=== PATIENT | female | born 1935 | race African-American/Black ===

== ENCOUNTER 2016-08-25 15:49 | Emergency (ER) | payer MEDICAID, MEDICARE, OTHER ==
[~2016-08-25] VITALS: Ht 157.5 cm; Wt 49.0 kg
[2016-08-25] MEDS ORDERED: ASPIR 8181 MG ORAL (15:56)
[2016-08-25] MEDS ORDERED: MECLIZINE HCL12.5 MG ORAL (15:56)
[2016-08-25] MEDS ORDERED: METFORMIN HCL500 M1 ORAL (15:56)
[2016-08-25 16:00] VITALS: BP 155/78
[2016-08-25] MEDS ORDERED: Meclizine 25mg tab ORAL PRN (16:30)
[2016-08-25 16:33] LABS: BASOPHILS % (AUTO) 1.4 % (0.0-2.0); EOSINOPHILS % (AUTO) 1.9 % (0.0-3.0); LYMPHOCYTES % (AUTO) 30.7 % (20.0-45.0); MEAN CORPUSCULAR HEMOGLOBIN 30.1 PG (27.0-31.0); MEAN CORPUSCULAR HGB CONC 35.1 G/DL (32.0-36.0); MEAN CORPUSCULAR VOLUME 86 FL (80-99); MEAN PLATELET VOLUME 7.1 FL (6.5-10.1); MONOCYTES % (AUTO) 8.6 % (1.0-10.0); NEUTROPHILS % (AUTO) 57.5 % (45.0-75.0); PLATELET COUNT 243 K/UL (150-450); RED BLOOD COUNT 3.91 M/UL (4.20-5.40); RED CELL DISTRIBUTION WIDTH 12.8 % (11.6-14.8); WHITE BLOOD COUNT 5.7 K/UL (4.8-10.8)
[2016-08-25 16:50] LABS: ANION GAP 12 (5-15); CALCIUM 9.3 mg/dL (8.6-10.2); CARBON DIOXIDE 24 mEQ/L (20-30); CHLORIDE 102 mEQ/L (98-107); HEMOLYSIS 2; SODIUM 138 mEQ/L (135-145)
[2016-08-25 17:50] LABS: TROPONIN I < 0.30 ng/mL (<=0.30)
[2016-08-25 17:53] LABS: ALANINE AMINOTRANSFERASE 6 U/L (3-33); ALBUMIN/GLOBULIN RATIO 1.2 (1.0-2.7); ANION GAP 11 (5-15); ASPARTATE AMINO TRANSFERASE 12 U/L (5-40); CALCIUM 8.6 mg/dL (8.6-10.2); CARBON DIOXIDE 23 mEQ/L (20-30); CHLORIDE 104 mEQ/L (98-107); CREATININE 0.9 mg/dL (0.5-0.9); HEMOLYSIS 13; POTASSIUM 3.7 mEQ/L (3.4-4.9); SODIUM 138 mEQ/L (135-145); TOTAL PROTEIN 6.6 g/dL (6.6-8.7)
[2016-08-25 18:03] LABS: CKMB < 1.5 ng/mL (< 3.8)
--- NOTE | 2016-08-25 18:52 | Emergency Room Report ---
History of Present Illness General Chief Complaint: Dizziness Source: EMS Present Illness HPI 80 YO Female presents to the ED c/o vertigo, BIBA. upon arrival of daughter, daughter states ems was called b/c pt was c/o CP. Pt. has a hx of vertigo and takes meclizine. pt. also has hx of HTN. Pt. denies weakness, ADAMS , trauma or fall. Pt. and daughter report that onset of symptoms was after eating food. daughter also states two days ago pt. c/o similar symptoms again while eating food. denies nausea, vomiting, fevers, or chills. denies frequency, dysuria, abdominal pain, lower extremity swelling/edema or recent cough/uri. Denies Palpitations, LOC, AMS, dizziness, Changes in Vision, Sensation, paresthesias, or a sudden severe headache. Allergies: Coded Allergies: No Known Allergies (Verified , 01/18/11) Patient History Past Medical History: see triage record Past Surgical History: none Pertinent Family History: none Now: No Immunizations: UTD Reviewed Nursing Documentation: PMH: Agreed, PSxH: Agreed Nursing Documentation-PMH Past Medical History: No History, Except For Hx Cardiac Problems: No - VERTIGO Hx Hypertension: Yes Hx Diabetes: Yes Review of Systems All Other Systems: negative except mentioned in HPI Physical Exam Vital Signs Date Time Temp Pulse Resp B/P Pulse Ox O2 Delivery O2 Flow Rate FiO2 08/25/16 15:53 98.4 102 16 169/97 100 Room Air Sp02 EP Interpretation: reviewed, abnormal - tachycardic 102 bpm General Appearance: no apparent distress, alert, GCS 15, non-toxic Head: normocephalic, atraumatic Eyes: bilateral eye PERRL, bilateral eye normal inspection ENT: hearing grossly normal, normal pharynx, no angioedema, normal voice Neck: full range of motion, supple/symm/no masses Respiratory: chest non-tender, lungs clear, normal breath sounds, speaking full sentences Cardiovascular #1: regular rate, rhythm, no edema, normal capillary refill Gastrointestinal: normal bowel sounds, non tender, soft, no guarding, no rebound Rectal: deferred Genitourinary: normal inspection, no CVA tenderness Musculoskeletal: back normal, gait/station normal, normal range of motion, non- tender Neurologic: alert, oriented x3, responsive, motor strength/tone normal, sensory intact, cerebellar normal, normal gait, speech normal, no pronator, other - negative goldman's Psychiatric: judgement/insight normal, memory normal, mood/affect normal Skin: normal color, no rash, warm/dry, well hydrated Medical Decision Making PA Attestation Dr. nathan is my supervising Physician whom patient management has been discussed with. Diagnostic Impression: Primary Impression: Nonspecific chest pain Additional Impression: History of vertigo ER Course 80 YO Female presents to the ED c/o vertigo, BIBA. upon arrival of daughter, daughter states ems was called b/c pt was c/o CP. Pt. has a hx of vertigo and takes meclizine. pt. also has hx of HTN. Pt. denies weakness, ADAMS , trauma or fall. Pt. and daughter report that onset of symptoms was after eating food. daughter also states two days ago pt. c/o similar symptoms again while eating food. denies nausea, vomiting, fevers, or chills. denies frequency, dysuria, abdominal pain, or recent cough/uri. Denies Palpitations, LOC, AMS, dizziness, Changes in Vision, Sensation, paresthesias, or a sudden severe headache. Ddx considered but are not limited to [place], pneumonia, contusion, costochondritis , PE, ACS, Shoulder strain, Chest wall contusion. aortic dissection. Vital signs: are WNL, pt. is afebrile H&PE are most consistent with non-specific cp, possible gastritis, will do cardiac work up. Pt. does not have focal neurological deficit. NAD, non-toxic in appearance. ORDERS: - EKG:- 75 BPM NSR - no acute ST changes reviewed by Dr. Dillon, this interpretation was scribed by HAWA Brown -CBC: mild anemia otherwise unremarkable -CMP electrolytes ok, glucose 139, cr. 1 -CK-MB: WNL -Troponins: WNL CXR: no acute disease, no infiltrates, no atelectasis, cardiomegaly noted per preliminary read in ED by Dr. Dillon, scribed by HAWA Brown ED INTERVENTIONS: - 1000cc NS - Meclizine PO -Zantac PO DISCHARGE: At this time pt. is stable for d/c to home. Will provide printed patient care instructions, and any necessary prescriptions. Care plan and follow up instructions have been discussed with the patient prior to discharge. Labs Test 08/25/16 16:15 08/25/16 17:15 08/25/16 19:30 White Blood Count 5.7 K/UL (4.8-10.8) Red Blood Count 3.91 M/UL (4.20-5.40) Hemoglobin 11.8 G/DL (12.0-16.0) Hematocrit 33.5 % (37.0-47.0) Mean Corpuscular Volume 86 FL (80-99) Mean Corpuscular Hemoglobin 30.1 PG (27.0-31.0) Mean Corpuscular Hemoglobin Concent 35.1 G/DL (32.0-36.0) Red Cell Distribution Width 12.8 % (11.6-14.8) Platelet Count 243 K/UL (150-450) Mean Platelet Volume 7.1 FL (6.5-10.1) Neutrophils (%) (Auto) 57.5 % (45.0-75.0) Lymphocytes (%) (Auto) 30.7 % (20.0-45.0) Monocytes (%) (Auto) 8.6 % (1.0-10.0) Eosinophils (%) (Auto) 1.9 % (0.0-3.0) Basophils (%) (Auto) 1.4 % (0.0-2.0) Sodium Level 138 mEQ/L (135-145) Potassium Level 3.7 mEQ/L (3.4-4.9) Chloride Level 104 mEQ/L (98-107) Carbon Dioxide Level 23 mEQ/L (20-30) Anion Gap 11 (5-15) Blood Urea Nitrogen 10 mg/dL (7-23) Creatinine 0.9 mg/dL (0.5-0.9) Estimat Glomerular Filtration Rate mL/min (>60) Glucose Level 103 mg/dL (74-106) Calcium Level 8.6 mg/dL (8.6-10.2) Total Bilirubin 0.9 mg/dL (0.0-1.2) Aspartate Amino Transf (AST/SGOT) 12 U/L (5-40) Alanine Aminotransferase (ALT/SGPT) 6 U/L (3-33) Alkaline Phosphatase 79 U/L (35-104) Total Creatine Kinase 66 U/L (26-140) Creatine Kinase MB < 1.5 ng/mL (< 3.8) Creatine Kinase MB Relative Index Troponin I < 0.30 ng/mL (<=0.30) Total Protein 6.6 g/dL (6.6-8.7) Albumin 3.6 g/dL (3.5-5.2) Globulin 3.0 g/dL Albumin/Globulin Ratio 1.2 (1.0-2.7) Urine Color Pale yellow Urine Appearance Clear Urine pH 6.5 (4.5-8.0) Urine Specific [place] 1.005 (1.005-1.035) Urine Protein Negative (NEGATIVE) Urine Glucose (UA) Negative (NEGATIVE) Urine Ketones Negative (NEGATIVE) Urine Occult Blood Negative (NEGATIVE) Urine Nitrite Negative (NEGATIVE) Urine Bilirubin Negative (NEGATIVE) Urine Urobilinogen Normal MG/DL (0.0-1.0) Urine Leukocyte Esterase 2+ (NEGATIVE) Urine RBC 0-2 /HPF (0 - 2) Urine WBC 5-10 /HPF (0 - 2) Urine Squamous Epithelial Cells Few /LPF (NONE/OCC) Urine Bacteria Few /HPF (NONE) EKG Diagnostic Results EP Interpretation: Dr. Dillon Rate: normal - 75 NSR Rhythm: NSR ST Segments: no acute changes ASA given to the pt in ED: No PA Scribe Text - EKG: BPM NSR - no acute ST changes reviewed by Dr. Dillon, this interpretation was scribed by HAWA Brown Last Vital Signs Date Time Temp Pulse Resp B/P Pulse Ox O2 Delivery O2 Flow Rate FiO2 08/25/16 16:00 98.2 99 18 155/78 98 Room Air Disposition: HOME, SELF-CARE Condition: Stable Scripts Ranitidine Hcl* (ZANTAC*) 150 Mg Tablet 150 MG ORAL TWICE A DAY for 30 Days, #60 TAB Prov: Shawna Brown 08/25/16 Referrals: NOT CHOSEN IPA/,REFERRING (PCP) Patient Instructions: Nonspecific Chest Pain, [id number] Additional Instructions: Take medications as directed. Follow up with a Primary Care Provider in 3-5 days, even if your symptoms have resolved. Return sooner to ED if new symptoms occur, or current symptoms become worse. - Please note that this Emergency Department Report was dictated using [employer] operator molasses technology software, occasionally this can lead to erroneous entry secondary to interpretation by the dictation equipment. Shawna Brown Aug 25, 2016 18:52
[2016-08-25] MEDS ORDERED: ZANTAC150 MG ORAL (18:59)
[2016-08-25 19:30] VITALS: BP 152/77
[2016-08-25 19:38] LABS: APPEARANCE,URINE CLEAR; KETONES,URINE NEGATIVE (NEGATIVE); LEUKOCYTE ESTERASE ,URINE 2+ (NEGATIVE); NITRITE,URINE NEGATIVE (NEGATIVE); PH,URINE 6.5 (4.5-8.0); PROTEIN,URINE NEGATIVE (NEGATIVE); UROBILINOGEN,URINE NORMAL MG/DL (0.0-1.0)
[2016-08-25 20:04] LABS: BACTERIA,URINE FEW /HPF; RBC,URINE 0-2 /HPF (0 - 2); SQUAMOUS EPITHELIAL CELL,UR FEW /LPF (NONE/OCC)
[2016-08-25 20:20] VITALS: BP 158/81
--- NOTE | 2016-08-26 10:09 | Diagnostic Imaging Report ---
Indications: Chest pain Technique: Portable AP chest Findings: Comparison: None Cardiac silhouette enlarged. Pulmonary vasculature within normal limits. Lung volumes are asymmetric. Lungs clear aside from suggestion of small linear densities left base. Prominent rounded soft tissue density with central gas lucency overlies midline inferior mediastinum. Severe thoracolumbar scoliosis. Disc marginal osteophytes thoracic, lumbar spine. IMPRESSION: No evidence of acute cardiopulmonary disease Suggestion of subsegmental atelectasis versus scarring left lung base Cardio megaly Hiatal hernia Scoliosis degenerative spondylosis
== END 2016-08-25 20:20 | disposition home or self-care (01) ==
LOC: EDBD 15:49 → EMR 17:20
DX: R07.89 Other chest pain (principal); I10 Essential (primary) hypertension; E11.9 Type 2 diabetes mellitus without complications; M41.85 Other forms of scoliosis, thoracolumbar region; M47.815 Spondylosis without myelopathy or radiculopathy, thoracolumbar region
CPT/HCPCS: 36415; 71010; 80048; 80053; 81003; 82550; 82553; 84484; 85025; 93005; 96360

== ENCOUNTER 2016-08-31 14:55 | Inpatient (IN) | payer MEDICARE ==
[~2016-08-31] VITALS: Ht 157.5 cm; Wt 49.0 kg
[~2016-08-31 14:55] MED LIST: ASPIR 8181 MG ORAL; MECLIZINE HCL12.5 MG ORAL; METFORMIN HCL500 M1 ORAL; ZANTAC150 MG ORAL
[2016-08-31 16:15] VITALS: BP 129/73
[2016-08-31 16:30] LABS: EOSINOPHILS % (AUTO) 1.7 % (0.0-3.0); LYMPHOCYTES % (AUTO) 32.3 % (20.0-45.0); MEAN CORPUSCULAR HEMOGLOBIN 28.9 PG (27.0-31.0); MEAN CORPUSCULAR HGB CONC 33.3 G/DL (32.0-36.0); MEAN CORPUSCULAR VOLUME 87 FL (80-99); MEAN PLATELET VOLUME 6.7 FL (6.5-10.1); MONOCYTES % (AUTO) 8.3 % (1.0-10.0); NEUTROPHILS % (AUTO) 56.7 % (45.0-75.0); PLATELET COUNT 240 K/UL (150-450); RED BLOOD COUNT 4.05 M/UL (4.20-5.40); RED CELL DISTRIBUTION WIDTH 13.2 % (11.6-14.8); WHITE BLOOD COUNT 5.9 K/UL (4.8-10.8)
[2016-08-31] MEDS ORDERED: Aspirin Baby 81mg ORAL ONE (16:30)
[2016-08-31 16:47] LABS: ALANINE AMINOTRANSFERASE 7 U/L (3-33); ALBUMIN/GLOBULIN RATIO 1.3 (1.0-2.7); ALCOHOL < 10 mg/dL; ANION GAP 15 (5-15); ASPARTATE AMINO TRANSFERASE 16 U/L (5-40); CALCIUM 9.5 mg/dL (8.6-10.2); CARBON DIOXIDE 25 mEQ/L (20-30); CHLORIDE 102 mEQ/L (98-107); CREATININE 0.9 mg/dL (0.5-0.9); HEMOLYSIS 18; POTASSIUM 3.9 mEQ/L (3.4-4.9); SODIUM 142 mEQ/L (135-145); TOTAL PROTEIN 7.6 g/dL (6.6-8.7); TROPONIN I < 0.30 ng/mL (<=0.30)
[2016-08-31 16:47] LABS: APPEARANCE,URINE CLEAR; KETONES,URINE NEGATIVE (NEGATIVE); LEUKOCYTE ESTERASE ,URINE 2+ (NEGATIVE); NITRITE,URINE NEGATIVE (NEGATIVE); PH,URINE 6 (4.5-8.0); PROTEIN,URINE NEGATIVE (NEGATIVE); UROBILINOGEN,URINE NORMAL MG/DL (0.0-1.0)
[2016-08-31 16:55] LABS: RBC,URINE 0-2 /HPF (0 - 2)
[2016-08-31 16:56] LABS: BACTERIA,URINE OCCASIONAL /HPF; SQUAMOUS EPITHELIAL CELL,UR FEW /LPF (NONE/OCC)
[2016-08-31 17:04] LABS: BILIRUBIN,DIRECT 0.2 mg/dL (0.1-0.3)
[2016-08-31] MEDS ORDERED: Morphine Sulfate 2mg/ml Inj IVP ONE (17:30)
[2016-08-31 18:26] VITALS: BP 126/66
[2016-08-31] MEDS ORDERED: DIAZEPAM10 MG ORAL ×2 (20:00→20:01)
[2016-08-31] MEDS ORDERED: ZANTAC150 MG ORAL (20:00)
[2016-08-31] MEDS ORDERED: CYPROHEPTADINE H4 MG PO (20:00)
[2016-08-31] MEDS ORDERED: METFORMIN HCL500 M1 ORAL (20:04)
[2016-08-31] MEDS ORDERED: METOPROLOL TART25 MG ORAL (20:04)
[2016-08-31] MEDS ORDERED: ASPIRIN EC325 MG ORAL (20:04)
[2016-08-31] MEDS ORDERED: FERROUS SULFAT325 MG ORAL (20:04)
[2016-08-31] MEDS ORDERED: MAG-OXIDE400 M1 PO (20:08)
[2016-08-31] MEDS ORDERED: VENTOLIN HFA18 GM INH (20:12)
[2016-08-31] MEDS ORDERED: LACTULOSE10 GM/153 PO (20:12)
[2016-08-31] MEDS ORDERED: ACETAMINOPHEN-1 EAC1 ORAL (20:12)
[2016-08-31 20:26] VITALS: BP 122/71
[2016-08-31 21:20] VITALS: BP 114/67
[2016-08-31 22:05] VITALS: BP 141/83
[2016-08-31 23:53] VITALS: BP 127/66
--- NOTE | 2016-09-01 00:14 | Emergency Room Report ---
History of Present Illness General Chief Complaint: Generalized Weakness Source: Patient Present Illness HPI Patient is a 80-year-old female who presented for increased generalized weakness. Patient reported having increased weakness premature left side. Patient had gradual onset of symptoms since this morning. The patient had been noted to have some head trauma approximately one month ago. She had recently been seen and prescribed meclizine after episode of vertigo. She denied having any fevers. She reported having difficulty with movements of her arm and leg. Allergies: Coded Allergies: No Known Allergies (Verified , 01/18/11) Patient History Past Medical History: see triage record Reviewed Nursing Documentation: PMH: Agreed, PSxH: Agreed Nursing Documentation-PMH Past Medical History: No History, Except For Hx Cardiac Problems: No - VERTIGO Hx Hypertension: Yes Hx Diabetes: Yes Hx Vertigo: Yes Review of Systems All Other Systems: negative except mentioned in HPI Physical Exam Vital Signs Date Time Temp Pulse Resp B/P Pulse Ox O2 Delivery O2 Flow Rate FiO2 08/31/16 15:06 98.2 82 14 153/87 96 Room Air Sp02 EP Interpretation: reviewed, normal General Appearance: normal inspection, well appearing, no apparent distress, alert, GCS 15 Head: atraumatic ENT: normal ENT inspection, hearing grossly normal, normal voice Neck: normal inspection, full range of motion, supple, no bony tend Respiratory: normal inspection, lungs clear, normal breath sounds, no respiratory distress, no retraction, no wheezing Cardiovascular #1: regular rate, rhythm, no edema Gastrointestinal: normal inspection, normal bowel sounds, non tender, soft, no guarding, no hernia Genitourinary: no CVA tenderness Musculoskeletal: normal inspection, back normal, normal range of motion Neurologic: normal inspection, alert, responsive, speech normal Psychiatric: normal inspection, judgement/insight normal, mood/affect normal Skin: normal inspection, normal color, no rash Medical Decision Making Diagnostic Impression: Primary Impression: Chronic subdural hematoma Additional Impression: Left-sided weakness ER Course Patient presented for a left -sided weakness. Because of complexity of patient' s case laboratory testing and imaging studies were ordered. A CT imaging of the head read by radiology showed chronic subdural hematoma. Does not appear to be any acute bleeding. The patient was given aspirin As this may represent a CVA. Laboratory testing showed evidence of a mild urinary tract infection. The electrolyte panel is unremarkable.Dr. Erica Vazquez was contacted for inpatient management Labs Test 7/18/17 15:55 08/31/16 16:00 Urine Color Pale yellow Urine Appearance Clear Urine pH 6 (4.5-8.0) Urine Specific [place] 1.010 (1.005-1.035) Urine Protein Negative (NEGATIVE) Urine Glucose (UA) Negative (NEGATIVE) Urine Ketones Negative (NEGATIVE) Urine Occult Blood Negative (NEGATIVE) Urine Nitrite Negative (NEGATIVE) Urine Bilirubin Negative (NEGATIVE) Urine Urobilinogen Normal MG/DL (0.0-1.0) Urine Leukocyte Esterase 2+ (NEGATIVE) Urine RBC 0-2 /HPF (0 - 2) Urine WBC 2-4 /HPF (0 - 2) Urine Squamous Epithelial Cells Few /LPF (NONE/OCC) Urine Bacteria Occasional /HPF (NONE) Urine Opiates Screen Negative (NEGATIVE) Urine Barbiturates Screen Negative (NEGATIVE) Phencyclidine (PCP) Screen Negative (NEGATIVE) Urine Amphetamines Screen Negative (NEGATIVE) Urine Benzodiazepines Screen Negative (NEGATIVE) Urine Cocaine Screen Negative (NEGATIVE) Urine Marijuana (THC) Screen Negative (NEGATIVE) White Blood Count 5.9 K/UL (4.8-10.8) Red Blood Count 4.05 M/UL (4.20-5.40) Hemoglobin 11.7 G/DL (12.0-16.0) Hematocrit 35.1 % (37.0-47.0) Mean Corpuscular Volume 87 FL (80-99) Mean Corpuscular Hemoglobin 28.9 PG (27.0-31.0) Mean Corpuscular Hemoglobin Concent 33.3 G/DL (32.0-36.0) Red Cell Distribution Width 13.2 % (11.6-14.8) Platelet Count 240 K/UL (150-450) Mean Platelet Volume 6.7 FL (6.5-10.1) Neutrophils (%) (Auto) 56.7 % (45.0-75.0) Lymphocytes (%) (Auto) 32.3 % (20.0-45.0) Monocytes (%) (Auto) 8.3 % (1.0-10.0) Eosinophils (%) (Auto) 1.7 % (0.0-3.0) Basophils (%) (Auto) 1.0 % (0.0-2.0) Sodium Level 142 mEQ/L (135-145) Potassium Level 3.9 mEQ/L (3.4-4.9) Chloride Level 102 mEQ/L (98-107) Carbon Dioxide Level 25 mEQ/L (20-30) Anion Gap 15 (5-15) Blood Urea Nitrogen 7 mg/dL (7-23) Creatinine 0.9 mg/dL (0.5-0.9) Estimat Glomerular Filtration Rate mL/min (>60) Glucose Level 90 mg/dL (74-106) Calcium Level 9.5 mg/dL (8.6-10.2) Total Bilirubin 1.2 mg/dL (0.0-1.2) Direct Bilirubin 0.2 mg/dL (0.1-0.3) Aspartate Amino Transf (AST/SGOT) 16 U/L (5-40) Alanine Aminotransferase (ALT/SGPT) 7 U/L (3-33) Alkaline Phosphatase 95 U/L (35-104) Troponin I < 0.30 ng/mL (<=0.30) Total Protein 7.6 g/dL (6.6-8.7) Albumin 4.3 g/dL (3.5-5.2) Globulin 3.3 g/dL Albumin/Globulin Ratio 1.3 (1.0-2.7) Thyroid Stimulating Hormone (TSH) 1.490 uIU/mL (0.300-4.500) Serum Alcohol < 10 mg/dL Last Vital Signs Date Time Temp Pulse Resp B/P Pulse Ox O2 Delivery O2 Flow Rate FiO2 08/31/16 23:53 97.5 59 18 127/66 100 Room Air Status: unchanged Disposition: ADMITTED INPATIENT Condition: Serious Referrals: NON PHYSICIAN (PCP) Afshin Calvillo Sep 01, 2016 00:14
[2016-09-01 04:00] VITALS: BP 127/75
[2016-09-01 07:56] VITALS: BP 121/79
--- NOTE | 2016-09-01 08:14 | Diagnostic Imaging Report ---
Indication: Focal weakness Technique: Contiguous 5 mm thick transaxial imaging of the head obtained in a Siemens Sensation [address] scanner. Soft tissue and bone windows generated. Total Dose length Product (DLP): [address] Dose Index Volume (CTDIvol): 70.38 mGy Comparison: none Findings: There is generalized atrophy of the brain with some prominence of the sulci and ventricles. There is some prominence of the CSF space over the cerebral convexity particularly on the right side suggestive of a chronic subdural hematoma or CSF hygroma. There is no associated mass effect or edema. There is no midline shift. No acute hemorrhage identified. A cavum septum pellucidum is present. Osseous structures are unremarkable in appearance. Impression: Suspected tiny chronic subdural hematomas versus CSF hygromas over the cerebral convexities right-sided larger than left. No associated mass effect, edema or midline shift. No evidence of acute intracranial hemorrhage. Mild generalized atrophy of the brain Cavum septum pellucidum The CT scanner at [facility] is accredited by the [employer] and the scans are performed using dose optimization techniques as appropriate to a performed exam including Automatic Exposure control.
[2016-09-01 11:40] VITALS: BP 117/75
--- NOTE | 2016-09-01 12:13 | Consultation ---
Consult Note Consult Note asked to eval for HTN Chief Complaint: Generalized Weakness Patient is a 80-year-old female who presented for increased generalized weakness. Patient reported having increased weakness premature left side. Patient had gradual onset of symptoms since this morning. The patient had been noted to have some head trauma approximately one month ago. She had recently been seen and prescribed meclizine after episode of vertigo. She denied having any fevers. She reported having difficulty with movements of her arm and leg. Past Medical History: No History, Except For Hx Cardiac Problems: No - VERTIGO Hx Hypertension: Yes Hx Diabetes: Yes Hx Vertigo: Yes . Assessment/Plan SubDural hematoma and left side weakness HTN DM Anemia Slow hydrate Anemia esposito Keep BP in check Neuro eval MESHA FLORES Sep 01, 2016 12:13
--- NOTE | 2016-09-01 12:51 | Neurology Progress Note ---
Objective Physical Exam Last Vital Signs Date Time Temp Pulse Resp B/P Pulse Ox O2 Delivery O2 Flow Rate FiO2 09/01/16 11:40 97.8 65 19 117/75 98 Room Air Laboratory Tests Test 08/31/16 15:55 08/31/16 16:00 Urine Color Pale yellow Urine Appearance Clear Urine pH 6 (4.5-8.0) Urine Specific [place] 1.010 (1.005-1.035) Urine Protein Negative (NEGATIVE) Urine Glucose (UA) Negative (NEGATIVE) Urine Ketones Negative (NEGATIVE) Urine Occult Blood Negative (NEGATIVE) Urine Nitrite Negative (NEGATIVE) Urine Bilirubin Negative (NEGATIVE) Urine Urobilinogen Normal MG/DL (0.0-1.0) Urine Leukocyte Esterase 2+ (NEGATIVE) H Urine RBC 0-2 /HPF (0 - 2) Urine WBC 2-4 /HPF (0 - 2) Urine Squamous Epithelial Cells Few /LPF (NONE/OCC) Urine Bacteria Occasional /HPF (NONE) Urine Opiates Screen Negative (NEGATIVE) Urine Barbiturates Screen Negative (NEGATIVE) Phencyclidine (PCP) Screen Negative (NEGATIVE) Urine Amphetamines Screen Negative (NEGATIVE) Urine Benzodiazepines Screen Negative (NEGATIVE) Urine Cocaine Screen Negative (NEGATIVE) Urine Marijuana (THC) Screen Negative (NEGATIVE) White Blood Count 5.9 K/UL (4.8-10.8) Red Blood Count 4.05 M/UL (4.20-5.40) L Hemoglobin 11.7 G/DL (12.0-16.0) L Hematocrit 35.1 % (37.0-47.0) L Mean Corpuscular Volume 87 FL (80-99) Mean Corpuscular Hemoglobin 28.9 PG (27.0-31.0) Mean Corpuscular Hemoglobin Concent 33.3 G/DL (32.0-36.0) Red Cell Distribution Width 13.2 % (11.6-14.8) Platelet Count 240 K/UL (150-450) Mean Platelet Volume 6.7 FL (6.5-10.1) Neutrophils (%) (Auto) 56.7 % (45.0-75.0) Lymphocytes (%) (Auto) 32.3 % (20.0-45.0) Monocytes (%) (Auto) 8.3 % (1.0-10.0) Eosinophils (%) (Auto) 1.7 % (0.0-3.0) Basophils (%) (Auto) 1.0 % (0.0-2.0) Sodium Level 142 mEQ/L (135-145) Potassium Level 3.9 mEQ/L (3.4-4.9) Chloride Level 102 mEQ/L (98-107) Carbon Dioxide Level 25 mEQ/L (20-30) Anion Gap 15 (5-15) Blood Urea Nitrogen 7 mg/dL (7-23) Creatinine 0.9 mg/dL (0.5-0.9) Estimat Glomerular Filtration Rate mL/min (>60) Glucose Level 90 mg/dL (74-106) Calcium Level 9.5 mg/dL (8.6-10.2) Total Bilirubin 1.2 mg/dL (0.0-1.2) Direct Bilirubin 0.2 mg/dL (0.1-0.3) Aspartate Amino Transf (AST/SGOT) 16 U/L (5-40) Alanine Aminotransferase (ALT/SGPT) 7 U/L (3-33) Alkaline Phosphatase 95 U/L (35-104) Troponin I < 0.30 ng/mL (<=0.30) Total Protein 7.6 g/dL (6.6-8.7) Albumin 4.3 g/dL (3.5-5.2) Globulin 3.3 g/dL Albumin/Globulin Ratio 1.3 (1.0-2.7) Thyroid Stimulating Hormone (TSH) 1.490 uIU/mL (0.300-4.500) Serum Alcohol < 10 mg/dL Impression/Recommendations Recommendations # [id number] JOEL HAYNES Sep 01, 2016 12:51
[2016-09-01] MEDS: D5NS 1,000 ML IV SCH (15:09)
[2016-09-01 15:45] VITALS: BP 125/74
--- NOTE | 2016-09-01 16:24 | Diagnostic Imaging Report ---
Indications: Left-sided weakness and mild altered middle status Technique: 3D [id number] images obtained through the [place] [employer] [place]. MIP reconstructions were generated in multiple rotational projections Comparison: None Findings: Codominant bilateral vertebral arteries, which are patent and nonstenotic. Patent nonstenotic basilar artery and proximal branches. Small bilateral P1 segments, large bilateral posterior communicating arteries are noted. P2 segments and proximal posterior cerebral artery branches are patent, nonstenotic. Bilateral distal internal carotid arteries, bilateral A1 segments, bilateral M1 segments, proximal branches are all patent, nonstenotic. There is probably a patent anterior communicating artery demonstrated. No evidence of aneurysm or vascular malformation demonstrated. Impression: No MRA evidence of significant proximal cerebrovascular insufficiency [place] [employer] [place] anatomy, as described
--- NOTE | 2016-09-01 16:32 | Cardiology Report ---
APPROVED REPORT EKG Measurement Heart [id number] Normal sinus rhythm Cannot rule out Anterior infarct, age undetermined Abnormal ECG
--- NOTE | 2016-09-01 16:40 | Diagnostic Imaging Report ---
Indication: 80-year-old female inpatient with left-sided weakness and mild altered metal status Technique: sagittal T1 fast spin echo, axial T1 and T2 FLAIR PROPELLER, axial T2 FS PROPELLER, T2* GRE, axial diffusion weighted images, post contrast axial and coronal T1 FLAIR PROPELLER images. ADC and exponential ADC maps generated Comparison: CT brain dated 08/31/2016 Findings: . No abnormal areas of restricted diffusion to suggest acute infarction. No acute hemorrhage or edema. No mass effect nor midline shift. No abnormal contrast enhancement. There is age-related enlargement of ventricles and extra axial CSF spaces. Material surrounding the frontal and parietal convexities demonstrates CSF signal, and contains vascular structures running through it, consistent with these representing areas of dilated CSF spaces rather than subdural abnormalities as suggested on prior CT. Patent cavum septum pellucidum is again demonstrated. Visualized orbits and sinuses are unremarkable. 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 Nonspecific bilateral deep white matter T2 hyperintensities are noted bilaterally. Vascular flow voids are preserved. There is evidence of prior bilateral cataract surgery.. Impression: Negative for acute intracranial bleed, infarct, mass effect, or contrast enhancing lesion Bilateral anterior convexity extra-axial fluid described on CT is consistent with bilateral anterior convexity volume loss with expansion of the adjacent CSF space. No evidence of chronic subdural hematoma or hygroma demonstrated Chronic and age-related changes, as described. Bilateral deep white matter T2 hyperintensities, most likely chronic deep white matter ischemic change.
--- NOTE | 2016-09-01 16:45 | Consultation ---
DATE OF CONSULTATION: HISTORY OF PRESENT ILLNESS: The patient presented with increased weakness and fatigue, but the patient presented with anxiety in the emergency room. During the evaluation, the patient stated that she has hit her head against the door and was very circumstantial. She stated she has been excessively more depressed, which is more situational and it is related to either living situation and financial stressors. She was reluctant to take any medication. Her depression is low degree and mild. She also has anxiety and it appears that it is not persistent every day most of the day. She does not endorse any psychotic or manic symptoms. She also has impairment cognition. PAST PSYCHIATRIC HISTORY: She has never been to a psychiatric hospital. No suicide attempt. She has not taken antidepressant in the past. She does not have a psychiatrist. PAST MEDICAL HISTORY: Left-sided weakness and chronic subdural hematoma, which could be related to her cognitive impairment. ALLERGIES: No known drug allergies. SUBSTANCE ABUSE HISTORY: No history of illicit drugs or alcohol. MENTAL STATUS EXAMINATION: The patient is alert and oriented times to person, place, and situation, cooperative and pleasant. Mood was dysphoric. Affect was constricted congruent with mood. Thought process is circumstantial. Thought content, no suicidal or homicidal ideation. No delusions. No auditory or visual hallucinations. ASSESSMENT: AXIS I Depressive disorder, mild. AXIS II Deferred. AXIS III None. AXIS IV Low. AXIS V Global assessment of functioning is 50. PLAN: The patient is reluctant to take any psychotropic medication. We will continue to monitor symptoms. Provide the patient with supportive therapy and reality orientation. Erick Sky M.D. DR: JEFFERY JOB#: [id number] CC:
[2016-09-01] MEDS ORDERED: D5NS 1000ml IV ONE (16:53)
[2016-09-01] MEDS ORDERED: 1/2 NS 1000ml IV ONE (16:53)
[2016-09-01 20:00] VITALS: BP 128/67
--- NOTE | 2016-09-01 20:00 | Consultation ---
DATE OF CONSULTATION: 09/01/2016 NEUROLOGICAL CONSULTATION: CONSULTING PHYSICIAN: Ryan Grace M.D. REQUESTING PHYSICIAN: Erica Rodrigues M.D. HISTORY OF PRESENT ILLNESS: The patient is a 80-year-old female, seen in neurological consultation to evaluate new onset of left-sided weakness. According to the patient and her daughter, they know that the patient has history of chronic intermittent vertigo. About one month ago, accidentally she hit her head against the door without loss of consciousness. This appeared to be uneventful but about a week ago, she declared that she had chest pain with left upper extremity weakness. Blood pressure was checked and this was 160/104. With this, she was brought to emergency room, her workup was negative. She was released home on meclizine for her dizzy spells, but she appeared to still having some weakness in her left arm. Yesterday morning, she woke up feeling fairly well before breakfast and then later, she started to develop dizziness. She became off balance and she developed weakness in the whole left upper and left lower extremity. She felt left side was clumsy. With this, she was brought to emergency room. Vital signs again on admission were stable, blood pressure 153/87. Imaging studies included CAT scan of the brain, which revealed a tiny chronic subdural hematoma versus CSF hygroma with cerebral convexities, right more than left. There was no mass effect. No midline shift. No evidence of acute intracranial abnormalities. Her laboratory work included mild anemia, hemoglobin 11.7 and hematocrit 35.1. Chemistry panel was unremarkable including TSH and troponins. Toxicology panel was negative and her urinalysis was negative except 2+ leukocyte esterase. The patient since admission until present, she felt some improvement and today she has no significant weakness on one side. PAST MEDICAL HISTORY: The patient has history of hypertension, diabetes, and recurrent vertigo. MEDICATIONS: Her treatment prior to admission included albuterol, aspirin, Valium 10 mg at bedtime, ferrous sulfate, lactulose, magnesium oxide, metformin, metoprolol, and Zantac. ALLERGIES: None reported. SOCIAL HISTORY: She lives at home with her daughter who was present during this examination. No alcohol. No drug abuse. Nonsmoker. FAMILY HISTORY: Noncontributory. REVIEW OF SYMPTOMS: The patient indicates that she has intermittent positional vertigo, today she is feeling fairly well. Denying headache or dizziness. No chest pain. No palpitations. No respiratory problems. Denies abdominal pain or discomfort. No urinary or bowel incontinence. The patient is still concerned that she had chest pain in the last few days. PHYSICAL EXAMINATION: GENERAL: A well-developed, well-nourished, healthy-appearing, elderly female, not in acute distress. VITAL SIGNS: Now stable. Blood pressure 117/75, temperature 97.8 degrees, and heart rate 65. HEENT: Head normocephalic. No evidence of trauma. Eyes, ears, nose, and throat are clear. NECK: Supple. No meningeal signs. MUSCULOSKELETAL: Unremarkable. There are no deformities. Peripheral pulses 1+ and symmetric. MENTAL STATUS: She is alert and oriented x3. Speech is fluent. Language intact. The patient is not a good historian, but she is pleasant, forthcoming, and cooperative during the exam. CRANIAL NERVE II: Pupils both responding to light and accommodation. Extraocular movements intact. No nystagmus. CRANIAL NERVE V: Normal corneal responses. CRANIAL NERVE VII: No facial asymmetry. CRANIAL NERVE VIII: Grossly normal hearing. CRANIAL NERVES IX THROUGH XII: Within normal limits. MOTOR EXAMINATION: Normal muscle tone and strength, 5/5 in all extremities. No involuntary movement. There is slight weakness in the left lower extremity, 5-/5, probably volitional. Deep tendon reflexes 1+ and symmetric. SENSORY EXAMINATION: Normal to pinprick and light touch. Gait is slow, but stable. IMPRESSION: 1. History of recent blunt head trauma with minor subdural hematoma, chronic. 2. Transient left-sided weakness, probably transient ischemic attack in right middle cerebral artery distribution. 3. Chronic labyrinthitis. 4. Diabetes type 2. 5. Hypertension. RECOMMENDATIONS: Check carotid duplex study. Check MRI of the brain without contrast, MR angiogram of the brain. Continue with aspirin 81 mg, start on statin. Thank you for allowing me to see this interesting patient in neurological consultation. Ryan Grace M.D. DR: KASIE JOB#: [id number] CC:
[2016-09-02] VITALS: BP 114/62
[2016-09-02 04:00] VITALS: BP 122/70
--- NOTE | 2016-09-02 07:30 | History and Physical Report ---
DATE OF ADMISSION: 08/31/2016 HISTORY OF PRESENT ILLNESS: The patient is admitted for rule out TIA, rule out CVA. The patient is complaining of left-sided weakness for five days. The patient also was dizzy, denies headache. Denies diplopia. No nausea, vomiting, or diarrhea. Denies shortness of breath and denies cough. Denies chills. The patient was seen about one month ago. The patient was admitted to rule out CVA. PAST MEDICAL HISTORY: Significant for anxiety, iron-deficiency anemia, NIDDM, hypertension, and GERD. PAST SURGICAL HISTORY: None. MEDICATIONS: Albuterol, aspirin, diazepam, ferrous sulfate, lactulose, magnesium, metformin, metoprolol, and . ALLERGIES: No known allergies. SOCIAL HISTORY: No history of smoking. No history of drug or alcohol abuse. FAMILY HISTORY: Noncontributory. REVIEW OF SYSTEMS: HEENT: Denies headaches. Respiratory: Denies shortness of breath. Denies cough. Cardiovascular: Denies chest pain or orthopnea. Gastrointestinal: No nausea, vomiting, or diarrhea. Denies heartburn. Extremities: Denies pain in the lower extremities. Central Nervous System: Denies change in vision or speech pattern. Has left-sided weakness . Denies any numbness. Denies diplopia. PHYSICAL EXAMINATION: VITAL SIGNS: Temperature is 96.8 degrees, pulse 62, and blood pressure is 141/80. HEENT: PERRLA. NECK: Supple. No lymphadenopathy. CHEST: Clear to auscultation. GASTROINTESTINAL: Soft, nontender, and nondistended. No organomegaly. EXTREMITIES: No edema. Moves all four extremities. NEUROLOGIC: Cranial nerves II through XII are intact. The patient's motor is equal on both sides. LABORATORY DATA: WBC of 5.9, hemoglobin 11.7, and platelets of 240,000. Sodium 130, potassium 3.9, BUN of 7, and creatinine 0.9, and glucose of 90. ASSESSMENT AND PLAN: 1. Rule out transient ischemic attack. 2. Rule out cerebrovascular accident. I have also consulted Dr. Macdonald and Dr. Grace for the borderline potassium as well as rule out CVA versus TIA. Erica Rodrigues M.D. DR: WILLOW JOB#: [id number] CC:
[2016-09-02 07:36] LABS: BASOPHILS % (AUTO) 0.7 % (0.0-2.0); EOSINOPHILS % (AUTO) 2.9 % (0.0-3.0); LYMPHOCYTES % (AUTO) 32.5 % (20.0-45.0); MEAN CORPUSCULAR HEMOGLOBIN 28.9 PG (27.0-31.0); MEAN CORPUSCULAR HGB CONC 33.1 G/DL (32.0-36.0); MEAN CORPUSCULAR VOLUME 87 FL (80-99); MEAN PLATELET VOLUME 6.6 FL (6.5-10.1); MONOCYTES % (AUTO) 8.6 % (1.0-10.0); NEUTROPHILS % (AUTO) 55.2 % (45.0-75.0); PLATELET COUNT 209 K/UL (150-450); RED BLOOD COUNT 3.61 M/UL (4.20-5.40); WHITE BLOOD COUNT 4.6 K/UL (4.8-10.8)
[2016-09-02 07:57] LABS: ALANINE AMINOTRANSFERASE 6 U/L (3-33); ALBUMIN/GLOBULIN RATIO 1.2 (1.0-2.7); ANION GAP 9 (5-15); ASPARTATE AMINO TRANSFERASE 14 U/L (5-40); CARBON DIOXIDE 24 mEQ/L (20-30); CHLORIDE 109 mEQ/L (98-107); CHOLESTEROL 123 mg/dL (< 200); CHOLESTEROL/HDL RATIO 1.9 (3.3-4.4); CREATININE 0.8 mg/dL (0.5-0.9); CRP QUANT < 0.3 mg/dL (< 0.5); LDL CHOLESTEROL (CALC.) 51 mg/dL (60-99); MAGNESIUM 1.7 mg/dL (1.7-2.5); PHOSPHORUS 3.2 mg/dL (2.5-4.8); POTASSIUM 3.8 mEQ/L (3.4-4.9); SODIUM 142 mEQ/L (135-145); TOTAL PROTEIN 6.4 g/dL (6.6-8.7); URIC ACID 4.9 mg/dL (3.0-7.5)
[2016-09-02 07:59] LABS: FERRITIN 75 ng/mL (13-150)
[2016-09-02 08:00] VITALS: BP 150/99
[2016-09-02 08:08] LABS: HEMOLYSIS 3; IRON 78 ug/dL (37-145); TOTAL IRON BINDING CAPACITY 265 ug/dL (250-400)
[2016-09-02 08:11] LABS: HEMOGLOBIN A1C 5.3 % (< 6.0)
[2016-09-02 08:12] LABS: BILIRUBIN,DIRECT 0.2 mg/dL (0.1-0.3)
[2016-09-02] MEDS: Metoprolol Tartrate 12.5mg TAB ORAL SCH ×2 (08:22→21:43)
[2016-09-02] MEDS: D5NS 1,000 ML IV SCH (08:25)
[2016-09-02] MEDS ORDERED: Aspirin Baby 81mg ORAL SCH (09:00)
--- NOTE | 2016-09-02 09:45 | Diagnostic Imaging Report ---
Indication: 80-year-old female inpatient with left-sided weakness and mild altered mental status Technique: Noncontrast axial ASSET images obtained through the neck, and MIP reconstructions were generated. Subsequently, IV administration gadolinium, multiphasic coronal TRICKS images were obtained, and MIP reconstructions were generated. Comparison: None Findings: Normal caliber aortic arch, no evidence of dissection. There is variant anatomy of separate origin of the left vertebral artery off of the aortic arch. This is unusual, and that it comes off distal to the left subclavian artery, normally coming off proximally and there is a separate origin. Otherwise classic branching great neck vessel anatomy. Patent nonstenotic right brachiocephalic and common carotid artery. Patent nonstenotic right internal carotid artery. Patent nonstenotic left subclavian and left vertebral artery, which is codominant to the left. Widely patent nonstenotic left vertebral artery. Widely patent, tortuous nonstenotic left common carotid artery. Widely patent nonstenotic left internal carotid artery. Impression: Negative for significant extracranial cerebrovascular insufficiency Unusual variant anatomy of separate origin of the left vertebral artery of the aortic arch distal to the left subclavian artery origin
[2016-09-02 12:00] VITALS: BP 146/82
--- NOTE | 2016-09-02 14:30 | Neurology Progress Note ---
Interim History Interim History ROS Limited/Unobtainable: No Complaints: none Events: stable Objective Physical Exam Last Vital Signs Date Time Temp Pulse Resp B/P Pulse Ox O2 Delivery O2 Flow Rate FiO2 09/02/16 12:00 97.2 84 20 146/82 99 Room Air Laboratory Tests Test 09/01/16 19:00 09/02/16 06:55 Phospholipids Level Pending White Blood Count 4.6 K/UL (4.8-10.8) L Red Blood Count 3.61 M/UL (4.20-5.40) L Hemoglobin 10.4 G/DL (12.0-16.0) L Hematocrit 31.5 % (37.0-47.0) L Mean Corpuscular Volume 87 FL (80-99) Mean Corpuscular Hemoglobin 28.9 PG (27.0-31.0) Mean Corpuscular Hemoglobin Concent 33.1 G/DL (32.0-36.0) Red Cell Distribution Width 13.0 % (11.6-14.8) Platelet Count 209 K/UL (150-450) Mean Platelet Volume 6.6 FL (6.5-10.1) Neutrophils (%) (Auto) 55.2 % (45.0-75.0) Lymphocytes (%) (Auto) 32.5 % (20.0-45.0) Monocytes (%) (Auto) 8.6 % (1.0-10.0) Eosinophils (%) (Auto) 2.9 % (0.0-3.0) Basophils (%) (Auto) 0.7 % (0.0-2.0) Sodium Level 142 mEQ/L (135-145) Potassium Level 3.8 mEQ/L (3.4-4.9) Chloride Level 109 mEQ/L (98-107) H Carbon Dioxide Level 24 mEQ/L (20-30) Anion Gap 9 (5-15) Blood Urea Nitrogen 7 mg/dL (7-23) Creatinine 0.8 mg/dL (0.5-0.9) Estimat Glomerular Filtration Rate mL/min (>60) Glucose Level 110 mg/dL (74-106) H Hemoglobin A1c 5.3 % (< 6.0) Uric Acid 4.9 mg/dL (3.0-7.5) Calcium Level 9.0 mg/dL (8.6-10.2) Phosphorus Level 3.2 mg/dL (2.5-4.8) Magnesium Level 1.7 mg/dL (1.7-2.5) Iron Level 78 ug/dL (37-145) Total Iron Binding Capacity 265 ug/dL (250-400) Percent Iron Saturation 29 % (15-50) Unsaturated Iron Binding 187 ug/dL (112-346) Ferritin 75 ng/mL (13-150) Total Bilirubin 1.4 mg/dL (0.0-1.2) H Direct Bilirubin 0.2 mg/dL (0.1-0.3) Gamma Glutamyl Transpeptidase 6 U/L (5-36) Aspartate Amino Transf (AST/SGOT) 14 U/L (5-40) Alanine Aminotransferase (ALT/SGPT) 6 U/L (3-33) Alkaline Phosphatase 76 U/L (35-104) C-Reactive Protein, Quantitative < 0.3 mg/dL (< 0.5) Pro-B-Type Natriuretic Peptide 83 pg/mL (0-450) Total Protein 6.4 g/dL (6.6-8.7) L Albumin 3.5 g/dL (3.5-5.2) Globulin 2.9 g/dL Albumin/Globulin Ratio 1.2 (1.0-2.7) Triglycerides Level 30 mg/dL (< 150) Cholesterol Level 123 mg/dL (< 200) LDL Cholesterol 51 mg/dL (60-99) L HDL Cholesterol 66 mg/dL (> 60) H Cholesterol/HDL Ratio 1.9 (3.3-4.4) L Vitamin B12 Level 1639 pg/mL (211-946) H Folate Pending Thyroid Stimulating Hormone (TSH) 1.420 uIU/mL (0.300-4.500) General: well developed, well nourished, no acute distress Head: normocophalic Neck: no rigidity Neurologic Exam Mental Status: awake, alert, oriented x4, other - forgetful Speech: normal speech, no dysarthia Language: normal language, no aphasia Cranial Nerve II: fundus normal, visual alegria, no papilledema Cranial Nerves III, IV, : PERRLA, EOMI, pupils Cranial Nerve V: normal facial sensations, temporales function normal, masseters function normal, pterygoids function normal Cranial Nerve VII: normal facial expressions Cranial Nerve VIII: no nystagmus Cranial Nerve IX: gag response Cranial Nerve XI: trapezii function normal Cranial Nerve XII: no tongue atrophy/fasciculations Motor System: normal muscle tone, strength 5/5, no involuntary movement, no muscle wasting Sensory: normal pinprick Coordination: normal finger to nose bilaterally Deep Tendon Reflexes: 1+ ankle (L), 1+ ankle (R), 1+ bicep (L), 1+ bicep (R), 1 + brachioradialis (L), 1+ brachioradialis (R), 1+ knee (L), 1+ knee (R), 1+ tricep (L), 1+ tricep (R) Reflexes: flexor plantar (L), flexor plantar (R) Stance: normal Gait: other - ok Impression/Recommendations Problems: (1) TIA involving carotid artery (2) Generalized ischemic cerebrovascular disease Status: stable Recommendations # [id number] MRI brain no acute changes neuro stable ok d/c home JOEL HAYNES Sep 02, 2016 14:30
--- NOTE | 2016-09-02 15:21 | General Progress Note ---
Assessment/Plan Status: stable Assessment/Plan status: SubDural hematoma and left side weakness HTN DM Anemia plan: Neuro considers stable for DC No renal issues Keep BP in check Subjective ROS Limited/Unobtainable: No Allergies: Coded Allergies: No Known Allergies (Verified , 01/18/11) Objective Last 24 Hour Vital Signs Date Time Temp Pulse Resp B/P Pulse Ox O2 Delivery O2 Flow Rate FiO2 09/02/16 12:00 97.2 84 20 146/82 99 Room Air 09/02/16 08:22 90 150/99 09/02/16 08:00 98.0 90 20 150/99 100 Room Air 09/02/16 04:00 97.7 66 18 122/70 98 Room Air 09/02/16 00:00 97.3 62 18 114/62 99 Room Air 09/01/16 20:00 97.6 18 128/67 99 Room Air 09/01/16 15:45 97.7 63 19 125/74 99 Room Air Intake and Output 09/01/16 09/02/16 19:00 07:00 Intake Total 1060 ml 450 ml Balance 1060 ml 450 ml Intake Oral 420 ml IV Total 640 ml 450 ml # Voids 3 4 Laboratory Tests 09/01/16 19:00: Phospholipids Level [Pending] 09/02/16 06:55: White Blood Count 4.6L, Red Blood Count 3.61L, Hemoglobin 10.4L, Hematocrit 31.5L, Mean Corpuscular Volume 87, Mean Corpuscular Hemoglobin 28.9, Mean Corpuscular Hemoglobin Concent 33.1, Red Cell Distribution Width 13.0, Platelet Count 209, Mean Platelet Volume 6.6, Neutrophils (%) (Auto) 55.2, Lymphocytes (% ) (Auto) 32.5, Monocytes (%) (Auto) 8.6, Eosinophils (%) (Auto) 2.9, Basophils ( %) (Auto) 0.7, Sodium Level 142, Potassium Level 3.8, Chloride Level 109H, Carbon Dioxide Level 24, Anion Gap 9, Blood Urea Nitrogen 7, Creatinine 0.8, Estimat Glomerular Filtration Rate , Glucose Level 110H, Hemoglobin A1c 5.3, Uric Acid 4.9, Calcium Level 9.0, Phosphorus Level 3.2, Magnesium Level 1.7, Iron Level 78, Total Iron Binding Capacity 265, Percent Iron Saturation 29, Unsaturated Iron Binding 187, Ferritin 75, Total Bilirubin 1.4H, Direct Bilirubin 0.2, Gamma Glutamyl Transpeptidase 6, Aspartate Amino Transf (AST/SGOT ) 14, Alanine Aminotransferase (ALT/SGPT) 6, Alkaline Phosphatase 76, C- Reactive Protein, Quantitative < 0.3, Pro-B-Type Natriuretic Peptide 83, Total Protein 6.4L, Albumin 3.5, Globulin 2.9, Albumin/Globulin Ratio 1.2, Triglycerides Level 30, Cholesterol Level 123, LDL Cholesterol 51L, HDL Cholesterol 66H, Cholesterol/HDL Ratio 1.9L, Vitamin B12 Level 1639H, Folate [ Pending], Thyroid Stimulating Hormone (TSH) 1.420 Height (Feet): 5 Height (Inches): 2.00 Weight (Pounds): 108 General Appearance: no apparent distress Objective no change MESHA FLORES Sep 02, 2016 15:21
[2016-09-02 16:00] VITALS: BP_SYST 136; BP_SYST 151; BP_DIAS 82; BP_DIAS 87
--- NOTE | 2016-09-02 18:02 | General Progress Note ---
Assessment/Plan Problem List: (1) Chronic subdural hematoma ICD Codes: I62.03 - Nontraumatic chronic subdural hemorrhage SNOMED: 27640423 (2) Left-sided weakness ICD Codes: R53.1 - Weakness SNOMED: 118054804 (3) TIA involving carotid artery ICD Codes: G45.1 - Carotid artery syndrome (hemispheric) SNOMED: 711718009 (4) Generalized ischemic cerebrovascular disease ICD Codes: I67.89 - Other cerebrovascular disease SNOMED: 240502639 Status: progressing Assessment/Plan afebrile no wheezing tia confused spoke w daughter benefit from pt/st Subjective ROS Limited/Unobtainable: Yes Allergies: Coded Allergies: No Known Allergies (Verified , 01/18/11) Objective Last 24 Hour Vital Signs Date Time Temp Pulse Resp B/P Pulse Ox O2 Delivery O2 Flow Rate FiO2 09/02/16 12:00 97.2 84 20 146/82 99 Room Air 09/02/16 08:22 90 150/99 09/02/16 08:00 98.0 90 20 150/99 100 Room Air 09/02/16 04:00 97.7 66 18 122/70 98 Room Air 09/02/16 00:00 97.3 62 18 114/62 99 Room Air 09/01/16 20:00 97.6 18 128/67 99 Room Air Intake and Output 09/01/16 09/02/16 19:00 07:00 Intake Total 1060 ml 450 ml Balance 1060 ml 450 ml Intake Oral 420 ml IV Total 640 ml 450 ml # Voids 3 4 Laboratory Tests 09/01/16 19:00: Phospholipids Level [Pending] 09/02/16 06:55: White Blood Count 4.6L, Red Blood Count 3.61L, Hemoglobin 10.4L, Hematocrit 31.5L, Mean Corpuscular Volume 87, Mean Corpuscular Hemoglobin 28.9, Mean Corpuscular Hemoglobin Concent 33.1, Red Cell Distribution Width 13.0, Platelet Count 209, Mean Platelet Volume 6.6, Neutrophils (%) (Auto) 55.2, Lymphocytes (% ) (Auto) 32.5, Monocytes (%) (Auto) 8.6, Eosinophils (%) (Auto) 2.9, Basophils ( %) (Auto) 0.7, Sodium Level 142, Potassium Level 3.8, Chloride Level 109H, Carbon Dioxide Level 24, Anion Gap 9, Blood Urea Nitrogen 7, Creatinine 0.8, Estimat Glomerular Filtration Rate , Glucose Level 110H, Hemoglobin A1c 5.3, Uric Acid 4.9, Calcium Level 9.0, Phosphorus Level 3.2, Magnesium Level 1.7, Iron Level 78, Total Iron Binding Capacity 265, Percent Iron Saturation 29, Unsaturated Iron Binding 187, Ferritin 75, Total Bilirubin 1.4H, Direct Bilirubin 0.2, Gamma Glutamyl Transpeptidase 6, Aspartate Amino Transf (AST/SGOT ) 14, Alanine Aminotransferase (ALT/SGPT) 6, Alkaline Phosphatase 76, C- Reactive Protein, Quantitative < 0.3, Pro-B-Type Natriuretic Peptide 83, Total Protein 6.4L, Albumin 3.5, Globulin 2.9, Albumin/Globulin Ratio 1.2, Triglycerides Level 30, Cholesterol Level 123, LDL Cholesterol 51L, HDL Cholesterol 66H, Cholesterol/HDL Ratio 1.9L, Vitamin B12 Level 1639H, Folate [ Pending], Thyroid Stimulating Hormone (TSH) 1.420 Height (Feet): 5 Height (Inches): 2.00 Weight (Pounds): 108 General Appearance: confused Respiratory/Chest: lungs clear Abdomen: soft Erica Rodrigues MD Sep 02, 2016 18:02
[2016-09-02 20:00] VITALS: BP 131/86
[2016-09-03 00:04] VITALS: BP 127/77
[2016-09-03 04:00] VITALS: BP 120/75
[2016-09-03] MEDS: D5NS 1,000 ML IV SCH (05:26)
[2016-09-03 07:44] VITALS: BP 155/94
[2016-09-03] MEDS: Metoprolol Tartrate 12.5mg TAB ORAL SCH (08:46)
[2016-09-03] MEDS ORDERED: Aspirin Baby 81mg ORAL SCH (09:00)
--- NOTE | 2016-09-03 09:35 | General Progress Note ---
Assessment/Plan Status: stable Assessment/Plan status: SubDural hematoma and left side weakness HTN DM Anemia plan: Neuro considers stable for DC No renal issues Keep BP in check, adjusted BP meds Subjective ROS Limited/Unobtainable: No Allergies: Coded Allergies: No Known Allergies (Verified , 01/18/11) Objective Last 24 Hour Vital Signs Date Time Temp Pulse Resp B/P Pulse Ox O2 Delivery O2 Flow Rate FiO2 09/03/16 08:46 79 155/94 09/03/16 07:44 97.9 79 16 155/94 100 Room Air 09/03/16 04:00 97.3 73 18 120/75 100 Room Air 09/03/16 00:04 97.5 82 18 127/77 97 Room Air 09/02/16 21:43 81 131/86 09/02/16 20:00 97.9 81 18 131/86 97 Room Air 09/02/16 16:00 97.2 84 20 136/82 99 Room Air 09/02/16 16:00 98.0 74 18 151/87 97 Room Air 09/02/16 12:00 97.2 84 20 146/82 99 Room Air Intake and Output 09/02/16 09/03/16 19:00 07:00 Intake Total 990 ml 1000 ml Balance 990 ml 1000 ml Intake Oral 740 ml 250 ml IV Total 250 ml 750 ml # Voids 4 2 Height (Feet): 5 Height (Inches): 2.00 Weight (Pounds): 108 General Appearance: no apparent distress Objective no change MESHA FLORES Sep 03, 2016 09:35
[2016-09-03 12:42] VITALS: BP 140/90
[2016-09-03 16:10] VITALS: BP 131/87
[2016-09-03] MEDS ORDERED: ACETAMINOPHEN325 M1 ORAL (19:11)
[2016-09-03] MEDS ORDERED: ASPIRIN81 MG ORAL (19:12)
[2016-09-03] MEDS ORDERED: METOPROLOL TART25 MG ORAL (19:13)
[2016-09-03] MEDS ORDERED: D5NS 1000ml IV ONE (19:59)
[2016-09-03] MEDS ORDERED: Metoprolol 25mg tab ORAL SCH (21:00)
--- NOTE | 2016-09-04 03:00 | Consultation ---
DATE OF CONSULTATION: 09/03/2016 HEMATOLOGY/ONCOLOGY CONSULTATION CONSULTING PHYSICIAN: Barron Khan M.D. REQUESTING PHYSICIAN: Erica Rodrigues M.D. REASON FOR CONSULTATION: Evaluation of anemia and leukopenia. IDENTIFICATION: Dear Dr. Lilia Maldonado, The patient is a pleasant 80-year-old female with a past medical history significant for hypertension, diabetes, vertigo recurrent, at this time presents to the [facility] with new onset left-sided weakness and has been seen by Neurology service. No mass effect noted on the CAT scan and reveals a tiny subdural hematoma. The patient was found to be anemic. Hematology service is consulted. PAST MEDICAL HISTORY: Hypertension, diabetes, and recurrent vertigo. MEDICATIONS: Reviewed, albuterol, aspirin, Valium, ferrous sulfate, lactulose, magnesium, metformin, Zantac, and metoprolol. ALLERGIES: None noted. SOCIAL HISTORY: No alcohol, tobacco, or illicit drug use. FAMILY HISTORY: Noncontributory. REVIEW OF SYSTEMS: Constitutional: Some vertigo noted, positional. Skin: No rashes, lumps, or itching. HEENT: No headache or vision changes. Breasts: No lumps, pain, or discharge. Pulmonary: No cough, sputum, or shortness of breath. Cardiovascular: No chest pain, tightness, or palpitations. Gastrointestinal: No nausea, vomiting, or diarrhea. Genitourinary: No dysuria, frequency, or urgency. Musculoskeletal: No joint swelling, muscle pain, or trauma. PHYSICAL EXAMINATION: GENERAL: The patient is in no distress. VITAL SIGNS: Blood pressure 122/73, temperature 98 degrees Fahrenheit, pulse 65, and respiratory rate 12. PULMONARY: Decreased breath sounds. CARDIOVASCULAR: Regular rate. No S3 or S4. GASTROINTESTINAL: Abdomen is soft, nontender, and nondistended. EXTREMITIES: A 1+ edema. LABORATORY AND DIAGNOSTIC DATA: WBC 4.6, hemoglobin 10.4, hematocrit 32, and platelet count 209,000. BUN of 7 and creatinine 0.8. Imaging reviewed. Duplex of the lower extremities is negative for DVT. ASSESSMENT AND PLAN: 1. Anemia, secondary to chronic disease. Anemia workup has been ordered and does not show anemia of iron deficiency. 2. Hyperbilirubinemia. We will evaluate with ultrasound of the abdomen. 3. Leukopenia, potentially secondary to underlying infectious process. 4. Subdural hematoma, left-sided weakness. 5. Diabetes mellitus. 6. Hypertension. 7. [facility] home resident. 8. Left-sided weakness. 9. Generalized ischemic cerebrovascular disease. 10. Discussed with staff. 11. . Barron Khan M.D. DR: SERGO JOB#: [id number] CC:
--- NOTE | 2016-09-06 10:29 | Discharge Summary ---
Discharge Summary Hospital Course Date of Admission Aug 31, 2016 at 20:37 Date of Discharge Sep 03, 2016 at 20:00 Admitting Diagnosis left side weakness HPI Doris Simons is a 80 year old female who was admitted on Aug 31, 2016 at 20:37 for Left Side Weakness Hospital Course dc summary #[id number] Discharge Medications Continued Medications: Acetaminophen* (Acetaminophen 325MG Tablet*) 325 Mg Tablet 650 MG ORAL Q4H PRN for Mild Pain/Temp > 100.5, TAB Aspirin* (Aspirin*) 81 Mg Tab.chew 81 MG ORAL DAILY, TAB Metoprolol Tartrate* (Metoprolol Tartrate*) 25 Mg Tablet 25 MG ORAL EVERY 12 HOURS, TAB Ranitidine Hcl* (Zantac*) 150 Mg Tablet 150 MG ORAL TWICE A DAY Discontinued Medications: Acetaminophen With Codeine (T#3) (Tylenol #3 Tab*) Y Tab 2 TAB ORAL EVERY 12 HOURS PRN for For Pain Albuterol Sulfate (Ventolin Hfa) 18 Gm Hfa.aer.ad 2 PUFFS INH PRN for Shortness of Breath Aspirin* (Aspirin Ec*) 325 Mg Tablet.dr 325 MG ORAL DAILY Cyproheptadine Hcl (Cyproheptadine Hcl) 4 Mg Tablet 4 MG PO BEDTIME Diazepam* (Diazepam*) 10 Mg Tablet 10 MG ORAL BEDTIME Ferrous Sulfate* (Ferrous Sulfate*) 325 Mg Tablet 325 MG ORAL THREE TIMES A DAY Lactulose (Lactulose) 10 Gm/15 Ml Solution 10 GM PO BEDTIME Magnesium Oxide (Mag-Oxide) 400 Mg Tablet 400 MG PO DAILY Metformin Hcl* (Metformin Hcl*) 500 Mg Tablet 500 MG ORAL TWICE A DAY Metoprolol Tartrate* (Metoprolol Tartrate*) 25 Mg Tablet 25 MG ORAL DAILY Discharge Condition Upon Discharge: stable Discharge Disposition Patient was discharged to SNF/Subacute Facility(03) Discharge Diagnoses: Phuc (Vancshawnein),Marilyn SAWANT Sep 06, 2016 10:29
--- NOTE | 2016-09-06 23:16 | Discharge Summary 2 SIG ---
DATE OF ADMISSION: 08/31/2016 DATE OF DISCHARGE: 09/03/2016 The patient is admitted under Dr. Rodrigues. CONSULTANTS: 1. Ryan Grace M.D. (Neurologist). 2. Dylon Mueller M.D. (Cosmetic Counselor). 3. Erick Sky M.D. (Psychiatrist). 4. Barron Khan M.D. (Movie Operator). BRIEF HOSPITAL COURSE: The patient is a 80-year-old female with history of hypertension, diabetes, and recent trauma about two months ago, presented with increased generalized weakness, worse on the left side. CT of the head, which is done in the emergency room revealed no evidence of acute intracranial hemorrhage. Suspected tiny chronic subdural hematoma versus CSF hygromas over the cerebral convexities, right-sided larger than the left. No associated mass effect, edema, or midline shift found. The patient's urine tox screen was negative. She has no leukocytosis. She is admitted for further management. Neurology consult was requested. Neurologist recommended to start statin, continue aspirin, and do MRI and MRA of the brain along with a carotid duplex. According to neurologist, the patient has a recent blunt head trauma with minor subdural hematoma after he reviewed the CT of the head and the patient's transient left-sided weakness probably transient ischemic attack with right middle cerebral artery distribution. Subsequently, workup as ordered by neurologist was done. All of them was negative for acute finding, but revealed extensive generalized ischemic cerebrovascular disease. Blood pressure was managed with current medication regimen and was stable. Per neurologist, the patient was found to be anemic. Anemia workup revealed no evidence of iron deficiency anemia. Hemoglobin and hematocrit were closely monitored. At the baseline, no need for transfusion. Psychiatrist seen the patient and diagnosed her with depressive disorder, mild. The patient was reluctant to start any psychotropic medication at that time. Psychiatrist recommended supportive care and reality orientation. Lipid panel was stable. Hemoglobin A1c was 5.3 at goal. Blood pressure was managed with beta-toni and was stable. DVT and GI prophylaxes provided. The patient was stable for discharge. DISCHARGE DIAGNOSES: Includes: 1. Transient ischemic attack with right middle cerebral artery distribution. 2. Transient left-sided weakness related to transient ischemic attack. 3. History of recent blunt head trauma with minor subdural hematoma, chronic subdural hematoma. 4. Generalized ischemic cardiovascular disease. 5. Hypertension. 6. Diabetes. 7. Anemia of chronic disease. 8. Chronic labyrinthitis. 9. Depressive disorder, mild. DISCHARGE MEDICATIONS: See medication reconciliation list. DISCHARGE INSTRUCTIONS: The patient was discharged to residential facility. Follow up with medical doctor at the facility. Erica Rodrigues M.D. I have been assigned to dictate discharge summary on this account and I was not involved in the patient's management. Marilyn Friend (vanchtein) NShantePShante DR: MARA JOB#: [id number] CC:
== END 2016-09-03 20:00 | DRG 69 ==
LOC: EMR 15:40 → EDBEDREQ 20:21 → 4E 20:37
DX: G45.9 Transient cerebral ischemic attack, unspecified (principal); N39.0 Urinary tract infection, site not specified; G81.94 Hemiplegia, unspecified affecting left nondominant side; E11.9 Type 2 diabetes mellitus without complications; I10 Essential (primary) hypertension; D63.8 Anemia in other chronic diseases classified elsewhere; F41.9 Anxiety disorder, unspecified; F32.9 Major depressive disorder, single episode, unspecified; H83.09 Labyrinthitis, unspecified ear; K21.9 Gastro-esophageal reflux disease without esophagitis; E80.6 Other disorders of bilirubin metabolism; I25.10 Atherosclerotic heart disease of native coronary artery without angina pectoris; S06.5X0D Traumatic subdural hemorrhage without loss of consciousness, subsequent encounter; W19.XXXD Unspecified fall, subsequent encounter
CPT/HCPCS: 36415; 70450; 70544; 70548; 70553; 80053; 80061; 80300; 80329; 81001; 82248; 82607; 82728; 82746; 82962; 82977; 83036; 83540; 83550; 83735; 83880; 84100; 84311; 84443; 84484; 84550; 85025; 86140; 93005; 93970

== ENCOUNTER 2017-02-18 14:12 | Emergency (ER) | payer MEDICARE ==
[~2017-02-18] VITALS: Ht 152.4 cm; Wt 45.4 kg
[~2017-02-18 14:12] MED LIST changes: +ACETAMINOPHEN-1 EAC1 ORAL; +ACETAMINOPHEN325 M1 ORAL; +ASPIRIN EC325 MG ORAL; +ASPIRIN81 MG ORAL; +CYPROHEPTADINE H4 MG PO; +DIAZEPAM10 MG ORAL; +FERROUS SULFAT325 MG ORAL; +LACTULOSE10 GM/153 PO; +MAG-OXIDE400 M1 PO; +METOPROLOL TART25 MG ORAL; +VENTOLIN HFA18 GM INH
--- NOTE | 2017-02-18 15:16 | Diagnostic Imaging Report ---
Indications: Pain Technique: Spiral acquisitions obtained through the brain. Angled axial and coronal 5 x 5 mm slices were reconstructed. Total dose length product 1362.01 mGycm. CTDI vol(s) 70.38 mGy. Dose reduction achieved using automated exposure control Comparison: 08/31/2016 Findings: Again demonstrated is age-related enlargement of the ventricles and extra axial CSF spaces, the latter most predominant in the frontal regions, unchanged. There is a cavum septum lucidum again noted. There is periventricular deep white matter low attenuation. Old lacunar infarct is seen in the anterior right lentiform nucleus. No acute intracranial hemorrhage or edema. No mass effect nor midline shift. There is evidence of prior bilateral cataract surgery. The calvarium is intact. The mastoids are clear. No significant interim change Impression: Chronic and age-related changes Negative for acute intracranial bleed or mass effect The CT scanner at [facility] is accredited by the [employer] and the scans are performed using protocols designed to limit radiation exposure to as low as reasonably achievable to attain images of sufficient resolution adequate for diagnostic evaluation.
[2017-02-18] MEDS ORDERED: NORCO 5-325 TA1 EACH ORAL (15:22)
[2017-02-18 15:48] VITALS: BP 148/78
--- NOTE | 2017-02-18 17:27 | Emergency Room Report ---
History of Present Illness General Chief Complaint: Headache Source: Patient, Family Member Present Illness HPI Patient has a history of a stroke and subdural hematoma per her report. Patient presents emergency department today complaining headache intermittently over last last 4 days. She denies any trauma. Patient denies any fever cough runny nose sore throat. Patient denies any neck stiffness or confusion. The headache is always mild on the posterior aspect worse when she turns a certain direction. Currently patient is pain-free. No other modifying factors. No other associated signs and symptoms. No other complaints were noted. Allergies: Coded Allergies: No Known Allergies (Verified , 01/18/11) Patient History Past Medical History: DM, HTN, CVA/TIA Past Surgical History: none Pertinent Family History: none Social History: Denies: smoking, alcohol use, drug use Reviewed Nursing Documentation: PMH: Agreed, PSxH: Agreed Nursing Documentation-PMH Hx Cardiac Problems: No - VERTIGO Hx Hypertension: Yes Hx Diabetes: Yes Hx Cerebrovascular Accident: Yes - TIA Hx Vertigo: Yes Review of Systems All Other Systems: negative except mentioned in HPI Physical Exam Vital Signs Date Time Temp Pulse Resp B/P (MAP) Pulse Ox O2 Delivery O2 Flow Rate FiO2 02/18/17 14:17 97.9 101 20 148/78 99 Room Air Sp02 EP Interpretation: reviewed, normal General Appearance: normal inspection, well appearing, no apparent distress, alert Head: atraumatic Eyes: bilateral eye normal inspection ENT: normal ENT inspection, hearing grossly normal, normal voice Neck: normal inspection, full range of motion, supple, no bony tend Respiratory: normal inspection, lungs clear, normal breath sounds, no respiratory distress, no retraction, no wheezing Cardiovascular #1: regular rate, rhythm, no edema Gastrointestinal: normal inspection, normal bowel sounds, non tender, soft, no guarding, no hernia Genitourinary: no CVA tenderness Musculoskeletal: normal inspection, back normal, normal range of motion Neurologic: normal inspection, alert, responsive, speech normal Psychiatric: normal inspection, judgement/insight normal, mood/affect normal Skin: normal inspection, normal color, no rash Medical Decision Making Diagnostic Impression: Primary Impression: Headache ER Course Patient isn't emergency department today complaining headache. Differential considerations include intracranial injury, CVA, migraine headache, tension headache. Patient's exam showed benign the patient is accompanied the past history. Therefore I felt a CT scan was indicated as this was not a typical headache. MIPS: Patient require CT of the head because patient's headache was atypical. Patient has a history of subdural hematoma. The CT of the head was necessary because we needed to evaluate for bleeding. Patient's head CT was interpreted radiology to be negative. Therefore felt the patient discharged home. Patient was given a prescription for pain medications.Patient is advised to follow up with primary doctor in 2-3 days and return the emergency room for any worsening symptoms and as needed. Last Vital Signs Date Time Temp Pulse Resp B/P (MAP) Pulse Ox O2 Delivery O2 Flow Rate FiO2 02/18/17 15:48 97.9 20 148/78 99 Room Air 02/18/17 15:48 99 Status: improved Disposition: HOME, SELF-CARE Condition: Stable Scripts Hydrocodone Bit/Acetaminophen 5-325* (NORCO 5-325*) 1 Each Tablet 1 TAB ORAL Q6H Y for For Pain, #10 TAB 0 Refills Prov: JEANNA CONDON M.D. 02/18/17 Referrals: NON PHYSICIAN (PCP) Patient Instructions: Tension Headache JEANNA CONDON M.D. Feb 18, 2017 17:27
== END 2017-02-18 16:10 | disposition home or self-care (01) ==
LOC: EMR 15:02
DX: R51 Headache (principal); E11.9 Type 2 diabetes mellitus without complications; Z86.73 Personal history of transient ischemic attack (TIA), and cerebral infarction without residual deficits
CPT/HCPCS: 70450; 99284

== ENCOUNTER 2017-03-02 11:34 | Emergency (ER) | payer MEDICARE ==
[~2017-03-02] VITALS: Ht 149.9 cm; Wt 50.8 kg
[~2017-03-02 11:34] MED LIST changes: +NORCO 5-325 TA1 EACH ORAL
[2017-03-02 12:05] VITALS: BP 166/87
[2017-03-02 12:34] LABS: BASOPHILS % (AUTO) 1.3 % (0.0-2.0); HEMATOCRIT 36.1 % (37.0-47.0); HEMOGLOBIN 11.5 G/DL (12.0-16.0); MEAN CORPUSCULAR VOLUME 87 FL (80-99); MONOCYTES % (AUTO) 9.2 % (1.0-10.0); NEUTROPHILS % (AUTO) 62.5 % (45.0-75.0); PLATELET COUNT 349 K/UL (150-450); RED BLOOD COUNT 4.12 M/UL (4.20-5.40); RED CELL DISTRIBUTION WIDTH 12.6 % (11.6-14.8); WHITE BLOOD COUNT 6.1 K/UL (4.8-10.8)
[2017-03-02 12:35] LABS: APPEARANCE,URINE SLIGHTLY CLOUDY; BILIRUBIN, URINE NEGATIVE (NEGATIVE); COLOR,URINE PALE YELLOW; GLUCOSE, URINE (UA) NEGATIVE (NEGATIVE); KETONES,URINE NEGATIVE (NEGATIVE); LEUKOCYTE ESTERASE ,URINE 3+ (NEGATIVE); NITRITE,URINE NEGATIVE (NEGATIVE); PH,URINE 5 (4.5-8.0); PROTEIN,URINE NEGATIVE (NEGATIVE); UROBILINOGEN,URINE NORMAL MG/DL (0.0-1.0)
[2017-03-02 12:44] LABS: ANION GAP 9 mmol/L (5-15); BLOOD UREA NITROGEN 7 mg/dL (7-18); CALCIUM 9.2 MG/DL (8.5-10.1); CARBON DIOXIDE 27 MMOL/L (21-32); CHLORIDE 104 MMOL/L (98-107); CREATININE 0.8 MG/DL (0.55-1.30); POTASSIUM 3.9 MMOL/L (3.5-5.1); SODIUM 140 MMOL/L (136-145)
[2017-03-02 12:55] LABS: ALANINE AMINOTRANSFERASE 12 U/L (12-78); ALBUMIN 3.6 G/DL (3.4-5.0); ALBUMIN/GLOBULIN RATIO 0.8 (1.0-2.7); ALKALINE PHOSPHATASE 85 U/L (46-116); ASPARTATE AMINO TRANSFERASE 14 U/L (15-37); BILIRUBIN,TOTAL 0.7 MG/DL (0.2-1.0)
--- NOTE | 2017-03-02 13:13 | Diagnostic Imaging Report ---
Indication: Chest pain Comparison: 08/25/2016 A single view chest radiograph was obtained. Findings: The heart is enlarged. There is a scoliosis. Lungs are clear. Bones are osteopenic IMPRESSION: No acute findings
[2017-03-02] MEDS ORDERED: TESSALON PERLE100 MG ORAL (13:24)
[2017-03-02] MEDS ORDERED: TAMIFLU75 MG ORAL (13:24)
--- NOTE | 2017-03-02 13:27 | Emergency Room Report ---
History of Present Illness General Chief Complaint: Chest Pain Source: Patient, Family Member Present Illness HPI 81-year-old female, brought in by daughter, for one week of cough, chest pain. No fever no chills. She's been eating and drinking normally. No shortness of breath. Has had a nonproductive cough. Daughter states that she wanted to bring her mother to get checked out as they will be traveling soon. Patient states that she has chest pain mostly when she coughs. Nonexertional. Last stress test was in last 2 years with normal Never had a cardiac cath Allergies: Coded Allergies: No Known Allergies (Verified , 01/18/11) Patient History Past Medical History: see triage record Past Surgical History: none Pertinent Family History: none Reviewed Nursing Documentation: PMH: Agreed, PSxH: Agreed Nursing Documentation-PMH Hx Cardiac Problems: No - VERTIGO Hx Hypertension: Yes Hx Diabetes: Yes Hx Cerebrovascular Accident: Yes - TIA Hx Vertigo: Yes Review of Systems All Other Systems: negative except mentioned in HPI Physical Exam Vital Signs Date Time Temp Pulse Resp B/P (MAP) Pulse Ox O2 Delivery O2 Flow Rate FiO2 03/02/17 11:37 98.4 76 20 166/87 98 Room Air 03/02/17 12:05 98 Sp02 EP Interpretation: reviewed, normal General Appearance: no apparent distress, alert, GCS 15, thin, other - Elderly female, calm and cooperative, not in acute distress Head: normocephalic, atraumatic Eyes: bilateral eye normal inspection, bilateral eye PERRL, bilateral eye EOMI ENT: normal ENT inspection, normal pharynx, normal voice, moist mucus membranes Neck: normal inspection, full range of motion, supple Respiratory: normal inspection, lungs clear, normal breath sounds, no respiratory distress, no retraction, no wheezing, speaking full sentences, chest symmetrical Cardiovascular #1: normal inspection, regular rate, rhythm, no edema, normal capillary refill Cardiovascular #2: 2+ radial (R), 2+ radial (L) Gastrointestinal: normal inspection, non tender, soft, non-distended, no guarding Musculoskeletal: normal inspection, back normal, normal range of motion, non- tender Neurologic: normal inspection, alert, oriented x3, responsive, motor strength/ tone normal, sensory intact, normal gait, speech normal Psychiatric: normal inspection, judgement/insight normal, memory normal Skin: normal inspection, normal color, no rash, warm/dry, well hydrated, normal turgor Medical Decision Making Diagnostic Impression: Primary Impression: Upper respiratory infection ER Course 81-year-old female presenting with cough and chest pain for one week DDX: Viral URI/pneumonia ACS vs. CHF vs. pneumonia vs. gastritis/GERD vs. pneumothorax Plan: IV access, obtain labs including troponin, EKG, CXR Aspirin his held is patient has a history of subdural hematoma ER course: Labs: troponin negative Patient remained chest pain free during ED stay. Disposition: Patient will be discharged to home. Strict precautions discussed with patient on when to emergently return to the ED : this includes worsening/severe chest pain, palpitations, shortness of breath, syncopal episodes, fever or chills, which may indicate severe illness. Patient verbalized understanding. Patient instructed to follow up with their PMD within the next 2 days. Patient also instructed to follow up with a financial aid within 2 days for possible outpatient stress test. Patient agrees with plan. Please note that this Emergency Department Report was dictated using [employer] professor technology software, occasionally this can lead to erroneous entry secondary to interpretation by the dictation equipment. EKG Diagnostic Results EP Interpretation: Yes Rate: normal Rhythm: NSR ST Segments: No acute changes ASA given to patient: no Rhythm Strip EP Interpretation: Yes Rate: 70 Rhythm: NSR, no PVCs, no ectopy Chest X-ray CXR: Ordered: Yes 1 view Indication: Chest pain EP interpretation: Yes Interpretation: No consolidation, no effusion, no PTX, no acute cardiopulmonary disease, scoliosis of the spine Impression: No acute disease Electronically signed by Nicole Navarrete MD Last Vital Signs Date Time Temp Pulse Resp B/P (MAP) Pulse Ox O2 Delivery O2 Flow Rate FiO2 03/02/17 12:05 76 20 Room Air 98 03/02/17 12:05 98.6 166/87 98 Disposition: HOME, SELF-CARE Condition: Improved Scripts Benzonatate* (TESSALON PERLE*) 100 Mg Capsule 100 MG ORAL THREE TIMES A DAY, #21 PERLE Prov: Nicole Navarrete M.DShante 03/02/17 Oseltamivir Phosphate (Tamiflu) 75 Mg Capsule 75 MG ORAL TWICE A DAY for 5 Days, #10 CAP 0 Refills Prov: Nicole Navarrete M.D. 03/02/17 Patient Instructions: Nonspecific Chest Pain, Upper Respiratory Infection, Adult Nicole Navarrete M.D. Mar 02, 2017 13:27
[2017-03-02 13:39] VITALS: BP 126/73
--- NOTE | 2017-03-03 12:40 | Cardiology Report ---
APPROVED REPORT EKG Measurement Heart [id number] Normal sinus rhythm with sinus arrhythmia Inferior infarct, age undetermined Abnormal ECG
== END 2017-03-02 13:39 | disposition home or self-care (01) ==
LOC: EMR 12:05
DX: J06.9 Acute upper respiratory infection, unspecified (principal); I10 Essential (primary) hypertension; E11.9 Type 2 diabetes mellitus without complications; Z86.73 Personal history of transient ischemic attack (TIA), and cerebral infarction without residual deficits
CPT/HCPCS: 36415; 71045; 80053; 81003; 83880; 84484; 85025; 93005; 99284